=== PATIENT | male | born 1995 | race Caucasian/White ===

== ENCOUNTER 2018-05-14 17:40 | Emergency (ER) | payer SELFPAY ==
[~2018-05-14] VITALS: Ht 175.3 cm; Wt 68.0 kg
[2018-05-14 17:41] VITALS: BP 127/69
--- NOTE | 2018-05-14 17:43 | NUR ---
JANNETH ROUSE, CURRENTLY AWAITING BED
--- NOTE | 2018-05-14 17:55 | NUR ---
PT BIBA C/O ANXIETY S/P PUSHING A CAR TODAY, REPORTS NUMBNESS/TINGLING TO HANDS/LIPS. 8/10 CHEST WALL PAIN. PT DENIES ETOH, REC DRUG USE. EKG ORDERED. PT STATES HE IS DIZZY AND NOT FEELING WELL. PT PUT ON 2L O2. IV BEING STARTED AND LABS DRAWN. ED MD NOTIFIED OF PT STATUS. DR TO SEE HIM NEXT. PATIENT POSITIONED FOR COMFORT; HOB ELEVATED; BEDRAILS UP X2; BED DOWN.
--- NOTE | 2018-05-14 17:55 | NUR ---
PT TAKEN BY CARE CREW TO BED 12
[2018-05-14] MEDS ORDERED: LORazepam 2 MG/ML VIAL IVP ONE (18:15)
--- NOTE | 2018-05-14 18:24 | NUR ---
XRAY AT BEDSIDE.
[2018-05-14 18:30] LABS: BASOPHILS % (AUTO) 0.3 % (0.0-2.0); EOSINOPHILS # (AUTO) 0.1 K/uL (0-0.4); EOSINOPHILS % (AUTO) 0.9 % (0.0-4.0); HEMATOCRIT 45.7 % (36-52); HEMOGLOBIN 15.6 g/dL (12.0-18.0); LYMPHOCYTES # (AUTO) 1.7 K/uL (2.0-11.5); LYMPHOCYTES % (AUTO) 15.3 % (20.5-51.1); MEAN CORPUSCULAR HEMOGLOBIN 31 pg (27-31); MEAN CORPUSCULAR HGB CONC 34 g/dL (33-37); MONOCYTES # (AUTO) 0.4 K/uL (0.8-1.0); MONOCYTES % (AUTO) 3.6 % (1.7-9.3); NEUTROPHILS # (AUTO) 8.7 K/uL (1.8-7.7); NEUTROPHILS % (AUTO) 79.9 % (42.2-75.2); PLATELET COUNT (AUTO) 173 K/uL (140-450); RED BLOOD CELL COUNT(AUTO) 4.97 MIL/uL (4.20-6.10); RED CELL DISTRIBUTION WIDTH 12.7 % (11.6-13.7); WHITE BLOOD COUNT (AUTO) 10.9 K/uL (4.8-10.8)
[2018-05-14 18:41] LABS: ANION GAP 10.9 (8-16); CARBON DIOXIDE 26.5 mmol/L (21-32); CHLORIDE 105 mmol/L (98-107); GFR ARICAN-AMERICAN 121 mL/min (>90); GLUCOSE 91 mg/dL (74-106); POTASSIUM 3.4 mmol/L (3.5-5.1); SODIUM SERUM 139 mmol/L (136-145); UREA NITROGEN, BLOOD 19 mg/dL (7-18)
[2018-05-14 18:47] LABS: ALBUMIN 4.4 g/dL (3.4-5.0); AMYLASE 46 U/L (25-115); ASPARTATE AMINOTRANSFERASE 11 U/L (15-37); LIPASE 88 U/L (73-393); TOTAL BILIRUBIN 0.8 mg/dL (0.0-1.0)
[2018-05-14 18:48] LABS: ACETAMINOPHEN < 0.5 ug/ml (10-30); SALICYLATE < 2.8 mg/dL (2.8-20.0)
[2018-05-14 18:51] LABS: PROTHROMBIN TIME 10.4 secs (10.8-13.4)
[2018-05-14 19:43] LABS: APPEARANCE,URINE CLEAR (CLEAR); COLOR,URINE ORANGE (YELLOW)
[2018-05-14 19:44] LABS: BILIRUBIN,URINE NEGATIVE (NEGATIVE); BLOOD, URINE NEGATIVE (NEGATIVE); LEUKOCYTE ESTERASE ,URINE NEGATIVE (NEGATIVE); NITRITE, URINE NEGATIVE (NEGATIVE); UGLUCOSE NEGATIVE (NEGATIVE)
[2018-05-14 19:49] LABS: BARBITURATE, URINE NEG. ng/ml (NEG <=200); BENZODIAZEPINE, URINE NEG. ng/mL (NEG <=200); CANNABINOID, URINE NEG. ng/mL (NEG <=50); COCAINE, URINE NEG. ng/mL (NEG <=300); OPIATE, URINE NEG. ng/mL (NEG <=2000); PHENCYCLIDINE SCREEN,URINE NEG. ng/mL (NEG <=25)
--- NOTE | 2018-05-14 21:24 | NUR ---
Patient discharged with v/s stable. Written and verbal after care instructions given and explained. Patient verbalized understanding. Ambulatory with steady gait. All questions addressed prior to discharge. Advised to follow up with PMD. IV removed, catheter intact and site benign. Applied folded 4x4 gauze and tape to stop bleeding.
[2018-05-14 21:29] VITALS: BP 114/66
== END 2018-05-14 21:24 | disposition home or self-care (01) ==
LOC: MED 17:40
DX: E86.0 Dehydration (principal)
CPT/HCPCS: 36415; 71045; 80053; 80305; 81003; 82150; 82550; 82948; 83690; 84484; 85025; 85610; 85730; 93005; 96374; 99285; G0480; G0482; J2060; Q0092

== ENCOUNTER 2018-11-16 20:45 | Emergency (ER) | payer SELFPAY ==
[~2018-11-16] VITALS: Ht 175.3 cm; Wt 61.7 kg
[2018-11-16 21:05] VITALS: BP 112/63
--- NOTE | 2018-11-16 21:07 | NUR ---
PT AMBULATED TO BED 6. PROVIDED WITH URINE CUP. UNABLE TO URINATE AT THIS TIME.
--- NOTE | 2018-11-16 21:30 | NUR ---
PT CAME INTO ER WITH C/O ABDOMINAL PAIN X 3 DAYS. PT HAS PAIN TO THE LUQ IN THE ABDOMEN. PT HAS ACTIVE BOWL SOUNDS IN ALL 4 Q. PT IS A/O X 4. PAIN IS 8/ 10 AT THIS TIME. PT STATES HE HAS BODY ACHES NON SPECIFIC. NO PAIN MEDICATIONS WERE TAKEN PRIOR TO ER. NO PREVIOUS MEDICAL HX AND NKA. ER MD MADE AWARE OF STATUS, SAFETY MEASURES IN PLACE, BED RAILS UP X1.
--- NOTE | 2018-11-16 21:30 | NUR ---
RECIEVED REPORT FROM JULISSA SALEEM, VSS
--- NOTE | 2018-11-16 21:58 | NUR ---
PT IS C/O HERNANDEZ. PAIN 01/11 AT THIS TIME. ER MADE AWARE
--- NOTE | 2018-11-16 22:15 | NUR ---
PT TAKEN TO X-RAY VIA WHEELCHAIR
--- NOTE | 2018-11-16 22:29 | NUR ---
PT RETURNED FROM XRAY VIA WHEELCHAIR
[2018-11-16 22:54] VITALS: BP 102/68
--- NOTE | 2018-11-16 22:54 | NUR ---
Patient discharged with v/s stable. Written and verbal after care instructions given and explained. Patient alert, oriented and verbalized understanding of instructions. Ambulatory with steady gait. All questions addressed prior to discharge. ID band removed. Patient advised to follow up with PMD. Rx of MAGNESIUM CITRATE, MIRALAX POWDER, ZOFRAN 4MG ODT, IBUPROFEN 600MG given. Patient educated on indication of medication including possible reaction and side effects. Opportunity to ask questions provided and answered.
== END 2018-11-16 22:54 | disposition home or self-care (01) ==
LOC: MED 20:45
DX: K59.00 Constipation, unspecified (principal)
CPT/HCPCS: 74021; 99283

== ENCOUNTER 2018-12-16 22:35 | Emergency (ER) | payer SELFPAY ==
[~2018-12-16] VITALS: Ht 175.3 cm; Wt 68.0 kg
[2018-12-16 22:55] VITALS: BP 115/60
--- NOTE | 2018-12-16 23:00 | NUR ---
TO LOBBY A/W BED , EKG DONE, NSR ERMD NOTED
--- NOTE | 2018-12-17 00:01 | NUR ---
PT TAKEN TO ER BED 10 VIA WHEELCHAIR
--- NOTE | 2018-12-17 00:15 | NUR ---
23 Y/O M PRESENTED TO ED WITH C/O DIFFICULTY BREATHING X 1 DAY. C/O "RUNNING OUT OF BREATH FAST". PER PT "ON December I WAS SEEN AT [facility] FOR MARIJUANA OVERDOSE. I FELT LIKE I COULDNT BREATHE AND JUST FELT NUMB. TODAY THE SAME THING HAPPENED." PT STATED HE FELT WEAK AND COLLAPSED EARLIER TODAY. AAOX4. SPEECH CLEAR. PERRL PRESENT. DENIES LOC. GCS 15. FAMILY AT BEDSIDE. ERMD NOTIFIED. WILL CONTINUE TO MONITOR.
[2018-12-17] MEDS ORDERED: NACL 0.9% 1,000 ML IV ONE (00:50)
--- NOTE | 2018-12-17 01:35 | NUR ---
PT AWAKE. VSS. FAMILY AT BEDSIDE. WILL CONTINUE TO MONITOR.
[2018-12-17 02:57] VITALS: BP 99/50
--- NOTE | 2018-12-17 03:11 | NUR ---
Patient discharged with v/s stable. Written and verbal after care instructions given and explained. Patient verbalized understanding. Ambulatory with steady gait. All questions addressed prior to discharge. Advised to follow up with PMD.
== END 2018-12-17 03:11 | disposition home or self-care (01) ==
LOC: MED 22:35
DX: R07.89 Other chest pain (principal); R06.02 Shortness of breath
CPT/HCPCS: 71045; 93005; 99283; J7030

== ENCOUNTER 2019-07-01 01:35 | Emergency (ER) | payer MEDICAID ==
[~2019-07-01] VITALS: Ht 177.8 cm; Wt 68.0 kg
[2019-07-01 01:41] VITALS: BP 107/73
--- NOTE | 2019-07-01 01:50 | NUR ---
24 Y/O MALE BIB FAMILY WITH REPORTS OF HEADACHE, THROAT PAIN, AND AT TIMES DIFFICULTY BREATHING. STATES HIS SYMPTOMS STARTED YESTERDAY MORNING. THREW UP 1X YESTERDAY MORNING. PATIENT STATES, " I HAVE A SORE THROAT, AND I HAVE A HEADACHE. I ALSO HAD SOME TROUBLE BREATHING.". A/OX4 FOLLOWS COMMANDS; BREATHING IS UNLABORED; CLEAR/DIMINISHED BREATH SOUNDS. 95% ON RA. NONPRODUCTIVE, DRY COUGH NOTED. NO NAUSEA/VOMITING AT THIS TIME. ERMD MADE AWRE OF STATUS. SIDE RAILSX1. WILL CONTINUE TO MONITOR. PLACED ON PULSE MONITOR. PARENTS ARE AT BEDSIDE. PMH:DENIES NKDA RX:DENIES
--- NOTE | 2019-07-01 02:41 | NUR ---
DR. RUVALCABA AT BEDSIDE.
[2019-07-01 03:41] VITALS: BP 107/73
--- NOTE | 2019-07-01 03:41 | NUR ---
Patient discharged with v/s stable. Written and verbal after care instructions given and explained. Patient alert, oriented and verbalized understanding of instructions. Ambulatory with steady gait. All questions addressed prior to discharge. ID band removed. Patient advised to follow up with PMD. Rx of TAMIFLU; PROMETHAZINE given. Patient educated on indication of medication including possible reaction and side effects. Opportunity to ask questions provided and answered.
== END 2019-07-01 03:41 | disposition home or self-care (01) ==
LOC: MED 01:35
DX: J10.1 Influenza due to other identified influenza virus with other respiratory manifestations (principal)
CPT/HCPCS: 87804; 99283

== ENCOUNTER 2020-03-13 01:00 | Emergency (ER) | payer SELFPAY ==
[~2020-03-13] VITALS: Ht 177.8 cm; Wt 65.8 kg
[2020-03-13 01:05] VITALS: BP 119/56
[2020-03-13] MEDS ORDERED: PROCHLORPERAZINE 10 MG/2 ML VIAL IVP ONE (01:45)
[2020-03-13] MEDS ORDERED: ACETAMINOPHEN EXTRA STRENGTH 500 MG TAB PO ONE (01:45)
[2020-03-13 01:58] LABS: BASOPHILS % (AUTO) 0.5 % (0.0-2.0); EOSINOPHILS # (AUTO) 0.2 K/uL (0-0.4); EOSINOPHILS % (AUTO) 1.9 % (0.0-4.0); HEMATOCRIT 45.7 % (36-52); HEMOGLOBIN 15.5 g/dL (12.0-18.0); LYMPHOCYTES # (AUTO) 1.8 K/uL (2.0-11.5); LYMPHOCYTES % (AUTO) 21.6 % (20.5-51.1); MEAN CORPUSCULAR HEMOGLOBIN 33 pg (27-31); MEAN CORPUSCULAR HGB CONC 34 g/dL (33-37); MEAN CORPUSCULAR VOLUME 96.5 fL (80-94); MONOCYTES # (AUTO) 0.4 K/uL (0.8-1.0); NEUTROPHILS # (AUTO) 6.1 K/uL (1.8-7.7); PLATELET COUNT (AUTO) 139 K/uL (140-450); RED BLOOD CELL COUNT(AUTO) 4.73 MIL/uL (4.20-6.10); RED CELL DISTRIBUTION WIDTH 12.9 % (11.6-13.7); WHITE BLOOD COUNT (AUTO) 8.5 K/uL (4.8-10.8)
--- NOTE | 2020-03-13 02:00 | NUR ---
25 Y/O M PRESENTS TO ED C/O ASCENDING BODY NUMBNESS AND HEADACHE X 1 DAYS. PT STATES THAT HE'S BEEN EXPERIENCING NUMBNESS THAT STARTS FROM THE FEET ALL THE WAY TO HIS WAIST SINCE 1100 YESTERDAY MORNING. PT ALSO STATES THAT WHEN THE NUMBNESS IS GONE, THEN HE WOULD EXPERIENCE HEADACHE. DENIES N/V/D/COUGH. VSS. PEDAL PULSES STRONG. BLE EMPLOYMENT PROGRAM REPRESENTATIVE EQUAL. PT AMBLE TO AMBULATE WITH NO DIFFICULTY. AAOX4. BED LOCKED AND IN LOWEST POSITION, SIDE RAIL UPX1. WILL CONTINUE TO MONITOR. MHX: DENIES NKA
[2020-03-13 02:20] LABS: ALBUMIN 3.8 g/dL (3.4-5.0); ANION GAP 11.3 (8-16); CARBON DIOXIDE 26.5 mmol/L (21-32); CREATININE 0.9 mg/dL (0.6-1.3); POTASSIUM 3.8 mmol/L (3.5-5.1); TOTAL BILIRUBIN 0.7 mg/dL (0.0-1.0)
[2020-03-13 02:49] LABS: BARBITURATE, URINE NEGATIVE ng/ml (NEG <=200); BENZODIAZEPINE, URINE NEGATIVE ng/mL (NEG <=200); CANNABINOID, URINE NEGATIVE ng/mL (NEG <=50); COCAINE, URINE NEGATIVE ng/mL (NEG <=300); OPIATE, URINE NEGATIVE ng/mL (NEG <=2000); PHENCYCLIDINE SCREEN,URINE NEGATIVE ng/mL (NEG <=25)
[2020-03-13 03:21] VITALS: BP 119/56
== END 2020-03-13 03:18 | disposition home or self-care (01) ==
LOC: MED 01:00
DX: G43.909 Migraine, unspecified, not intractable, without status migrainosus (principal); R20.2 Paresthesia of skin
CPT/HCPCS: 36415; 70450; 80053; 80305; 85025; 96374; 99284; J0780

== ENCOUNTER 2021-06-03 20:29 | Emergency (ER) | payer MEDICAID ==
[~2021-06-03] VITALS: Ht 177.8 cm; Wt 68.0 kg
[2021-06-03 20:39] VITALS: BP 116/70
[2021-06-03] MEDS ORDERED: IBUP-2213 PO (23:07)
[2021-06-04 00:26] VITALS: BP 116/70
== END 2021-06-04 00:27 | disposition home or self-care (01) ==
LOC: MED 20:29
DX: J02.8 Acute pharyngitis due to other specified organisms (principal); B97.89 Other viral agents as the cause of diseases classified elsewhere; Z20.822 Contact with and (suspected) exposure to COVID-19
CPT/HCPCS: 87081; 99283; U0003